=== PATIENT | female | born 1980 | race Caucasian/White ===

== ENCOUNTER 2021-10-14 15:52 | Day surgery (SDC) | payer OTHER, SELFPAY ==
[2021-10-14] VITALS (12 sets, daily range): BP systolic 102–192; BP diastolic 68–141; PULSE 60–115; RESP 14–31; TEMP 36.6–37.6; O2SAT 95–100; BMI 22.6
--- NOTE | 2021-10-14 15:59 | W.PM.OPSUD ---
Surgery/Procedure H&P Update DATE OF PROCEDURE: October 14, 2021 DATE H&P PERFORMED: 10/14/21 H&P UPDATE INFORMATION: No changes to prior documentation CHANGES TO PREVIOUS DOCUMENTATION: Taking the patient emergently to surgery for acute cholecystitis with severe leukocytosis. PREOP DIAGNOSIS: Acute calculus cholecystitis. PLANNED PROCEDURE: Operation Date: 10/14/21 16:20 Proposed Procedures p Laparoscopic Cholecystectomy(Not Applicable) - Yannick Gonzales MD
[2021-10-14 16:11] LABS: OR HCG Qualitative Urine Negative (Negative)
--- NOTE | 2021-10-14 16:33 | P.ANESASSM_ITS ---
Pre-Anesthetic Assessment Pre-Anesthetic Assessment: Height/Weight: Height 1.68 m Weight 63.503 kg Temp Pulse Resp BP Pulse Ox 99.7 F H 112 H 16 122/85 98 10/14/21 16:25 10/14/21 16:25 10/14/21 16:25 10/14/21 16:25 10/14/21 16:25 Preop Diagnosis: Acute calculus cholecystitis. Proposed Procedure: Operation Date: 10/14/21 16:20 Proposed Procedures p Laparoscopic Cholecystectomy(Not Applicable) - Yannick Gonzales MD Was Beta Guillaume taken within 24 hours: N/A Was Clonidine taken within 24 hours: N/A Last intake: Intake Last Liquid Date 10/14/21 Last Liquid Time 13:00 Last Solid Date 10/13/21 Last Solid Time 18:00 Social: Social History: No alcohol and No tobacco Exam: Pre-Anes Outpt Exam: alert, oriented x 3, clear to auscultation bilate rally and regular rate & rhythm Airway: Submandibular: WNL Cervical ROM: WNL MP: 2 Dentition: Full History/ROS: No significant history except as noted Anesthetic Plan: ASA status: 1 Anesthesia: General (Mod RSI) Risk of > 500 ml blood loss (7ml/kg in children): No PFSH Anesthesia Female Reproductive History: Date of last menstrual period: 09/24/21 Data Anesthesia Other Labs: Laboratory Results - last 48 hr 10/14/21 16:10 Urine HCG, Qual Negative Cardiac Studies: No Data to Display
[2021-10-14] MEDS: sodium chloride 0.9% 1,000 ML 30 ML IV (16:39)
[2021-10-14] MEDS: lidocaine 1% INJ 20 mL XX (16:45)
--- NOTE | 2021-10-14 17:09 | P.OP_ITS ---
Operative Report Date of procedure: October 14, 2021 Pre-op Diagnosis: Acute calculus cholecystitis. Post-op diagnosis: same Procedure Done: Laparoscopic cholecystectomy. Specimens removed/disposition: 1. Bile sent for culture. 2. Gallbladder. Surgeon: Yannick Gonzales Anesthesia: General Estimated blood loss (mL): 5 Complications: None. Condition: stable Disposition: PACU Procedure: The patient was brought to the Operating Room and was placed in a supine position on the Operating Room table. General endotracheal anesthesia was induced. The abdomen was prepped and draped in a sterile fashion. A small vertical incision was carried out in the superior aspect of the umbilicus over the patient's umbilical hernia. The herniated fat was carefully freed from the subcutaneous tissue and was excised at the fascial layer, revealing a hernia defect measuring a little over a centimeter in diameter. A stay suture of 0 Vicryl was placed on either side of the midline defect. The Alexx port was placed directly into the peritoneal cavity through the hernia defect and was held in place with the inflatable balloon. The peritoneal cavity was insufflated with carbon dioxide. The laparoscope was used to inspect the abdominal cavity. The gallbladder could be seen and was obviously involved with acute inflammatory change. No other gross abnormalities were initially noted. A 5 millimeter port was placed in the epigastrium under direct vision. Two 5-millimeter ports were placed on the right side of the abdomen under direct vision. Palpation of the gallbladder with a gr asper revealed that the gallbladder was quite distended. Approximately 50 mL of bile were suctioned from the gallbladder to decompress it so that it could be grasped. Some of the bile was sent for culture. The gallbladder was then grasped and was elevated. The patient had some early changes of gangrene on the posterior surface of the gallbladder. No gross perforation was present. Blunt dissection and hydrodissection were carried out in the infundibular region of the gallbladder and the cystic duct and cystic artery were identified. The tissue was quite edematous. The gallbladder was partially removed from the liver bed using cautery and the spatula to confirm the anatomy before the structures were clipped and divided. The gallbladder was then removed from the liver bed using cautery and the spatula. After the gallbladder had been removed from the liver bed, the laparoscope was moved to the epigastric port and the gallbladder was removed from the peritoneal cavity through the umbilical port site after being placed in a laparoscopic bag. The stay sutures of Vicryl were tied to each other at the umbilicus, closing the previous hernia defect so that it was airtight. The perihepatic spaces were extensively irrigated with saline and the liver bed was reinspected. No ongoing problems were seen. The remaining ports were removed from the abdominal wall and the pneumoperitoneum was evacuated. All skin incisions were closed using inverted interrupted sutures of 4-0 Vicryl. Benzoin and Steri-Strips were placed over the incisions and Band-Aids followed. The patient was taken to the Recovery Area in stable condition postoperatively.
--- NOTE | 2021-10-15 01:18 | ANE.PACU2 ---
Inpatient post-anesthesia follow up: Airway intact: Yes Vital signs: Temperature 98.2 F Pulse Rate 70 Respiratory Rate 16 Blood Pressure 114/82 Pulse Oximetry 96 Oxygen Delivery Me thod Room Air Oxygen Flow Rate 6 Fraction of Inspir ed Oxygen Hydration adequate: Yes Nausea and vomiting: No Pain level: 2 Mental status: Baseline
== END 2021-10-14 18:55 | disposition home or self-care (01) ==
PROVIDERS: Anesthesiology; PCP Family Medicine; Visit Provider Surgery
PROC: 0FT44ZZ Resection of Gallbladder, Percutaneous Endoscopic Approach (ICD-10-PCS; CPT 47562; principal; 2021-10-14 16:00)
DX: K80.10 Calculus of gallbladder with chronic cholecystitis without obstruction (principal)
CPT/HCPCS: 47562; 84703; 87070; 87075; 87205; 88304; J0330; J0690; J1100; J1200; J1885; J2250; J2405; J2704; J2710; J3010; J3490; J7030

== ENCOUNTER 2024-04-12 08:53 | Outpatient (CLI) | payer SELFPAY ==
--- NOTE | 2024-04-12 08:58 | USR_ITS ---
PROCEDURE INFORMATION: Exam: US Pelvis, Complete, Non-Obstetric Exam date and time: 04/12/2024 9:21 AM Age: 44 years old Clinical indication: Menstruation abnormalities; Other: Aub; Additional info: Abnormal uterine bleeding TECHNIQUE: Imaging protocol: Transabdominal pelvic nonobstetric ultrasound. Complete exam. Real time ultrasound with image documentation. COMPARISON: US gall bladder [id number] 10/14/2021 8:23 AM FINDINGS: Uterus: Thickened endometrium 2.3 cm in thickness. It is homogeneous in appearance however. Right ovary/adnexa: Ovary is normal. No mass. Normal blood flow. Left ovary/adnexa: Ovary is normal. No mass. Normal blood flow. Intraperitoneal space: No intraperitoneal fluid. Urinary bladder: Normal. US/US pelv w/transvag [id number] IMPRESSION: Thickened endometrium. Otherwise normal.
== END 2024-04-12 08:54 | disposition home or self-care (01) ==
LOC: RAD 08:54
PROVIDERS: PCP Family Medicine; Visit Provider Nurse Practitioner Family
DX: N93.9 Abnormal uterine and vaginal bleeding, unspecified (principal); N85.00 Endometrial hyperplasia, unspecified
CPT/HCPCS: 76830; 76856